=== PATIENT | female | born 1995 | race Caucasian/White ===

== ENCOUNTER 2020-02-15 14:38 | Emergency (ER) | payer OTHER, SELFPAY ==
[2020-02-15 14:51] VITALS: BP 120/84; PULSE 76; RESP 18; TEMP 36.8; O2SAT 98; BMI 20.3
--- NOTE | 2020-02-15 16:17 | PC.NURSE ---
PT states she has had bilateral flank pain, right > left since Sunday. Nothing makes pain better / worse. Was nauseas m/t/w but that has resolved. States does not feel like a UTI. Denies fever / chills/ cough/ shortness of breath and trauma. Skin is pink /warm/dry. Pt is in no distress, texting on phone, moves freely w/o increased pain.
[2020-02-15 16:21] LABS: Add Manual Diff / Slide Review NO; Basophils Absolute Auto 0 /uL (0-100); Basophils Percent Auto 0.4 % (0-2); Eosinophils Absolute Auto 100 /uL (0-450); Eosinophils Percent Auto 0.7 % (2-4); Hematocrit 42.3 % (36-46); Hemoglobin 14.9 g/dL (12.0-16.0); Lymphocytes Absolute Auto 1900 /uL (1100-4500); Lymphocytes Percent Auto 23.2 % (25-40); Mean Corpuscular HGB Conc 35.3 % (30-36); Mean Corpuscular Hemoglobin 31.7 PG (26-34); Monocytes Absolute Auto 500 /uL (0-900); Monocytes Percent Auto 6.6 % (3-14); Neutrophils Absolute Auto 5700 /uL (1500-7000); Neutrophils Percent Auto 69.1 % (50-75); Platelet Count 228 X10^3/uL (150-400); Red Cell Distribution Width 11.7 % (11.6-14.8); White Blood Cell Count 8.2 X10^3/uL (4.5-11.0)
[2020-02-15 16:32] LABS: Alanine Aminotransferase 16 IU/L (<35); Albumin 5.1 g/dL (3.5-5.0); Albumin Globulin Ratio 1.3 (1.0-2.8); Alkaline Phosphatase 59 U/L (38-126); Aspartate Aminotransferase 25 IU/L (14-36); BUN Creatinine Ratio 12.7 (6-22); Bilirubin Total 0.8 mg/dL (0.2-1.3); Blood Urea Nitrogen 7 mg/dL (7-17); Calcium 10.1 mg/dL (8.4-10.2); Carbon Dioxide 22 mmol/L (22-32); Chloride 104 mmol/L (98-107); Estimated Glomerular Filt Rate > 60.0 mL/min (>60); Globulin 3.8 g/dL (1.7-4.1); Glucose 94 mg/dL (70-100); HEMOLYSIS < 15 (0-50); Potassium 3.9 mmol/L (3.4-5.1); Sodium 137 mmol/L (137-145); Total Protein 8.9 g/dL (6.3-8.2)
[2020-02-15] MEDS: KETOROLAC 60 MG/2 ML VIAL 15 MG IV (17:37)
[2020-02-15 17:40] VITALS: BP 108/72; PULSE 60; RESP 14; O2SAT 98
--- NOTE | 2020-02-15 22:31 | ED.BACK ---
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 Patient denies urinary symptoms such as urgency, frequency, dysuria, hematuria. Patient denies fever, vomiting but reports she was nauseated and had hot flashes on Sunday and Sunday (4-5 days ago) which resolved. Patient describes as constant throbbing pain with random stabbing pain. Patient denies elevating or relieving factors. Patient reports LMP was 3 weeks ago which was normal. Patient denies lifting heavy objects, increasing physical activities. Patient denies recent falls, trauma or injuries. Related Data Home Medications Medication Instructions Recorded Confirmed No Known Home Medications 02/15/20 02/15/20 Allergies Allergy/AdvReac Type Severity Reaction Status Date / Time Penicillins Allergy Severe Hives Verified 02/15/20 14:55 Review of Systems <BG Montoya - Last Filed: 02/15/20 23:32> Review of Systems Narrative: General: See HPI HEENT: Denies sinus pain, ear pain, sore throat, difficulty swallowing, dizziness. Respiratory: Denies dyspnea, cough, wheezing, hemoptysis, sputum. Cardiovascular: Denies chest pain, palpitations, orthopnea, edema. Gastrointestinal: Denies (+) resolved nausea, vomiting, abdominal pain, diarrhea, constipation, melena. : See HPI Musculoskeletal: See HPI Skin: Denies rash, skin lesions, or other. Neurologic: Denies weakness, headache, numbness, change in speech, confusion, seizures, incoordination. Psychiatric: No concerning psychosocial issues. 12-point review of systems is negative except for those stated above. Patient History <BG Montoya Last Filed: 02/15/20 23:32> Medical History (Updated 02/15/20 @ 23:24 by BG Montoya) No significant past medical history (Acute) Surgical History (Updated 02/15/20 @ 23:24 by BG Montoya) No pertinent past surgical history (Acute) Social History Smoking Status: Never smoker Smoking Status: Never smoker alcohol intake frequency: a few times a week Substance Use Type: does not use Exam <BG Montoya - Last Filed: 02/15/20 23:32> Narrative Exam Narrative: General appearance: well developed, well nourished, in no acute distress. Head: normocephalic, atraumatic, no scalp lesions, non-tender. ENT: Hearing grossly intact. Airway patent. Neck/Thyroid: neck supple, full range of motion, no visible masses or meningeal signs. No JVD, non-tender without lymphadenopathy. Skin: no suspicious rashes, lesions over visible areas. Warm and dry and appropriate color for ethnicity. Heart: no clubbing, no cyanosis, no edema. S1 and S2 normal. RRR w/o murmurs, clicks, or bruits. Lungs: Breathing even and unlabored. No stridor. No accessory muscles used. Able to speak in full sentences. Chest: normal shape and expansion. Abdomen: non-obese, non-distended. Bowel sounds intact in 4 quadrant and soft to palpate in all quadrant. Neurologic: alert and oriented. Cognitive exam, ACQUISITION ANALYST and PNS grossly intact on informal exam. Psych: good eye contact, normal affect. Initial Vital Signs Initial Vital Signs: Vital Signs Temperature 98.2 F 02/15/20 14:51 Pulse Rate 76 02/15/20 14:51 Respiratory Rate 18 02/15/20 14:51 Blood Pressure 120/84 02/15/20 14:51 Pulse Oximetry 98 02/15/20 14:51 Back/Spine/Pelvis Back: normal to inspection Thoracic/Lumbar Spine: thoraco-lumbar ROM normal, No bend over test abnormal, paraspinal tenderness (in left back), No thoraco-lumbar ROM limited, No thoraco-lumbar spasm, No thoracic spinal tenderness and No lumbar spinal tenderness <Oswald Duggan MD - Last Filed: 02/17/20 08:08> Initial Vital Signs Initial Vital Signs: Vital Signs Temperature 98.2 F 02/15/20 14:51 Pulse Rate 76 02/15/20 14:51 Respiratory Rate 18 02/15/20 14:51 Blood Pressure 120/84 02/15/20 14:51 Pulse Oximetry 98 02/15/20 14:51 Scores <Cali BG Bryant - Last Filed: 02/15/20 23:32> GCS [place] coma scale eye opening: Spontaneous [place] coma scale verbal response: Orientated [place] coma scale motor response: Obey commands Luis Miguel coma scale total score: 15 Course <Cali BG Bryant - Last Filed: 02/15/20 23:32> Orders Ordered: Discontinued Medications Ketorolac Tromethamine (Toradol) 15 mg IV NOW ONE Stop: 02/15/20 16:54 Last Admin: 02/15/20 17:37 Dose: 15 mg Documented by: LIZBET Vital Signs Vital signs: Vital Signs - 8 hr 02/15/20 17:40 Pulse Rate 60 Respiratory Rate 14 Blood Pressure 108/72 Pulse Oximetry 98 <Oswald Duggan MD - Last Filed: 02/17/20 08:08> Orders Ordered: Discontinued Medications Ketorolac Tromethamine (Toradol) 15 mg IV NOW ONE Stop: 02/15/20 16:54 Last Admin: 02/15/20 17:37 Dose: 15 mg Documented by: LIZBET Vital Signs Vital signs: Vital Signs - 8 hr 02/15/20 17:40 Pulse Rate 60 Respiratory Rate 14 Blood Pressure 108/72 Pulse Oximetry 98 MDM - Back Pain/Injury <[facility] - Last Filed: 02/15/20 23:32> Differential Diagnosis Differential diagnosis: Likely pyelonephritis and other (low back pain, UTI, kidney stone) Medical Records Attestation: I reviewed the patient's medical records. Lab Data Attestation: I reviewed the patient's lab results. Result diagrams: 02/15/20 16:14 02/15/20 16:14 Labs: Lab Results 02/15/20 02/15/20 Range/Units 16:14 16:14 WBC 8.2 (4.5-11.0) X10^3/uL RBC 4.70 (4.0-5.2) X10^6/uL Hgb 14.9 (12.0-16.0) g/dL Hct 42.3 (36-46) % MCV 90.0 (80-100) fL MCH 31.7 (26-34) PG MCHC 35.3 (30-36) % RDW 11.7 (11.6-14.8) % Plt Count 228 (150-400) X10^3/uL Neut % (Auto) 69.1 (50-75) % Lymph % (Auto) 23.2 L (25-40) % [place] % (Auto) 6.6 (3-14) % Eos % (Auto) 0.7 L (2-4) % Baso % (Auto) 0.4 (0-2) % Neut # (Auto) 5700 (7513-4271) /uL Lymph # (Auto) 1900 (9326-3434) /uL [place] # (Auto) 500 (0-900) /uL Eos # (Auto) 100 (0-450) /uL Baso # (Auto) 0 (0-100) /uL Sodium 137 (137-145) mmol/L Potassium 3.9 (3.4-5.1) mmol/L Chloride 104 (98-107) mmol/L Carbon Dioxide 22 (22-32) mmol/L BUN 7 (7-17) mg/dL Creatinine 0.55 (0.52-1.04) mg/dL Estimated GFR > 60.0 (>60) mL/min BUN/Creatinine Ratio 12.7 (6-22) Glucose 94 (70-100) mg/dL Calcium 10.1 (8.4-10.2) mg/dL Total Bilirubin 0.8 (0.2-1.3) mg/dL AST 25 (14-36) IU/L ALT 16 (<35) IU/L Alkaline Phosphatase 59 (38-126) U/L Total Protein 8.9 H (6.3-8.2) g/dL Albumin 5.1 H (3.5-5.0) g/dL Globulin 3.8 (1.7-4.1) g/dL Albumin/Globulin Ratio 1.3 (1.0-2.8) Point of Care Testing Test Results Negative Urine Dip Bedside Urine Glucose Negative Bedside Urine Bilirubin - Negative Bedside Urine Ketone - Negative Urine Specific [place] 1.005 Bedside Urine Occult Blood - Negative Bedside Urine pH 7.0 Bedside Urine Protein - Negative Bedside Urine Urobilinogen - Negative Bedside Urine Nitrite - Negative Bedside Urine Leukocytes - Negative Esterase MDM Narrative Medical decision making narrative: This is a 24 year female who presents to ED with bilateral flank pain which is worse on the left side. Urine test was negative for infection or blood. Urine HCG was negative. CBC test shows no leukocytosis. Unremarkable chemistry test including kidney function test. Patient's physical exam is not consistent with kidney stone. Patient is afebrile in ED With within normal vital signs. Given unremarkable findings in lab, urine test, physical exam, imaging test has been deferred at this time. Patient was medicated with Toradol 15mg IV before discharged to home and likely this is musculoskeletal back pain. Patient advised to use [id number] Tylenol or Motrin as needed to follow-up with her primary care physician. Return precautions were discussed with patient and patient verbalized understanding and agreement with treatment plan <Oswald Duggan MD - Last Filed: 02/17/20 08:08> Lab Data Labs: Lab Results 02/15/20 02/15/20 Range/Units 16:14 16:14 WBC 8.2 (4.5-11.0) X10^3/uL RBC 4.70 (4.0-5.2) X10^6/uL Hgb 14.9 (12.0-16.0) g/dL Hct 42.3 (36-46) % MCV 90.0 (80-100) fL MCH 31.7 (26-34) PG MCHC 35.3 (30-36) % RDW 11.7 (11.6-14.8) % Plt Count 228 (150-400) X10^3/uL Neut % (Auto) 69.1 (50-75) % Lymph % (Auto) 23.2 L (25-40) % [place] % (Auto) 6.6 (3-14) % Eos % (Auto) 0.7 L (2-4) % Baso % (Auto) 0.4 (0-2) % Neut # (Auto) 5700 (2036-8181) /uL Lymph # (Auto) 1900 (8512-3629) /uL [place] # (Auto) 500 (0-900) /uL Eos # (Auto) 100 (0-450) /uL Baso # (Auto) 0 (0-100) /uL Sodium 137 (137-145) mmol/L Potassium 3.9 (3.4-5.1) mmol/L Chloride 104 (98-107) mmol/L Carbon Dioxide 22 (22-32) mmol/L BUN 7 (7-17) mg/dL Creatinine 0.55 (0.52-1.04) mg/dL Estimated GFR > 60.0 (>60) mL/min BUN/Creatinine Ratio 12.7 (6-22) Glucose 94 (70-100) mg/dL Calcium 10.1 (8.4-10.2) mg/dL Total Bilirubin 0.8 (0.2-1.3) mg/dL AST 25 (14-36) IU/L ALT 16 (<35) IU/L Alkaline Phosphatase 59 (38-126) U/L Total Protein 8.9 H (6.3-8.2) g/dL Albumin 5.1 H (3.5-5.0) g/dL Globulin 3.8 (1.7-4.1) g/dL Albumin/Globulin Ratio 1.3 (1.0-2.8) Point of Care Testing Test Results Negative Urine Dip Bedside Urine Glucose Negative Bedside Urine Bilirubin - Negative Bedside Urine Ketone - Negative Urine Specific [place] 1.005 Bedside Urine Occult Blood - Negative Bedside Urine pH 7.0 Bedside Urine Protein - Negative Bedside Urine Urobilinogen - Negative Bedside Urine Nitrite - Negative Bedside Urine Leukocytes - Negative Esterase Discharge Plan Departure Patient Disposition: Home Clinical Impression: Low back pain Qualifiers: Chronicity: acute Back pain laterality: right Sciatica presence: without sciatica Qualified Code(s): M54.5 - Low back pain Discharge Date/Time: 02/15/20 17:44 Instructions: DI for Low Back Pain Activity Restrictions/Additional Instructions: You have been diagnosed with [left low back pain. urine test appears to be clean for infection. Urine test is negative. There is no increase in white count indicating infection. Chemistry test is unremarkable and normal kidney function test today.]. What to do: *Take your medications as directed. You can take [id number] Tylenol or Motrin as needed for discomfort. Tylenol 650-1000 mg up to 3 to 4 times a day as needed. Ibuprofen 400-600 mg up to 3 times a day with meals as needed for pain. *Follow up with your primary care provider in 2-3 days, call for an appointment. Let them know you were seen in the ED and that we asked you to be seen in follow up. If your pain persists, you may need imaging test. *Return to ED if you have any new, worsening, or concerning symptoms, such as [fever, rash, worsening pain, chest pain, breathing difficulty, urinary symptoms, blood in her urine or any acute concerns]. Prescriptions: No Action No Known Home Medications RF: 0 Referrals: [facility] [Outside]
== END 2020-02-15 17:44 | disposition home or self-care (01) ==
PROVIDERS: Emergency Medicine; Emergency Provider Nurse Practitioner Family
DX: M54.5 Low back pain (principal); R11.0 Nausea
CPT/HCPCS: 36415; 80053; 81003; 81025; 85025; 96374; 99284; J1885

== ENCOUNTER 2022-03-27 10:28 | Emergency (ER) | payer OTHER, SELFPAY ==
[2022-03-27 10:43] VITALS: BP 124/84; PULSE 78; RESP 18; TEMP 36.3; O2SAT 98; BMI 19.5
--- NOTE | 2022-03-27 10:49 | DI.RAD.S_ITS ---
PROCEDURE: XR CHEST 1V INDICATIONS: chest pain TECHNIQUE: One view of the chest was acquired. COMPARISON: None. FINDINGS: Surgical changes and devices: None. Lungs and pleura: Lungs are clear. No pleural effusions or pneumothorax. Mediastinum: Mediastinal contours appear normal. Heart size is normal. Bones and chest wall: No suspicious bony lesions. Overlying soft tissues appear unremarkable. IMPRESSION: No acute process. Dictated by: Gustavo Padgett M.D. on 03/27/2022 at 11:18 Approved by: Gustavo Padgett M.D. on 03/27/2022 at 11:18
[2022-03-27 11:27] VITALS: BP 125/83; PULSE 72; RESP 18; O2SAT 99
[2022-03-27 11:46] LABS: Add Manual Diff / Slide Review NO; Basophils Absolute Auto 0 /uL (0-100); Basophils Percent Auto 0.6 % (0-2); Eosinophils Absolute Auto 0 /uL (0-450); Eosinophils Percent Auto 0.3 % (2-4); Hematocrit 37.9 % (36-46); Hemoglobin 13.7 g/dL (12.0-16.0); Lymphocytes Absolute Auto 1700 /uL (1100-4500); Lymphocytes Percent Auto 26.4 % (25-40); Mean Corpuscular HGB Conc 36.1 % (30-36); Mean Corpuscular Hemoglobin 31.7 PG (26-34); Mean Corpuscular Volume 87.8 fL (80-100); Monocytes Absolute Auto 600 /uL (0-900); Monocytes Percent Auto 9.8 % (3-14); Neutrophils Absolute Auto 4000 /uL (1500-7000); Neutrophils Percent Auto 62.9 % (50-75); Platelet Count 233 X10^3/uL (150-400); Red Blood Cell Count 4.31 X10^6/uL (4.0-5.2); Red Cell Distribution Width 12.3 % (11.6-14.8); White Blood Cell Count 6.4 X10^3/uL (4.5-11.0)
[2022-03-27 11:58] LABS: Alanine Aminotransferase 19 IU/L (<35); Albumin 4.7 g/dL (3.5-5.0); Albumin Globulin Ratio 1.2 (1.0-2.8); Alkaline Phosphatase 56 U/L (38-126); Aspartate Aminotransferase 29 IU/L (14-36); BUN Creatinine Ratio 23.5 (6-22); Bilirubin Total 1.3 mg/dL (0.2-1.3); Blood Urea Nitrogen 12 mg/dL (7-17); Calcium 9.5 mg/dL (8.4-10.2); Carbon Dioxide 23 mmol/L (22-32); Chloride 100 mmol/L (98-107); Creatine Kinase 53 U/L (30-135); Estimated Glomerular Filt Rate > 60 mL/min (>60); Glucose 88 mg/dL (70-100); HEMOLYSIS < 15 (0-50); Lipase 73 U/L (23-300); Magnesium 1.6 mg/dL (1.6-2.3); Potassium 4.4 mmol/L (3.4-5.1); Sodium 136 mmol/L (137-145); Total Protein 8.7 g/dL (6.3-8.2)
[2022-03-27 12:10] LABS: Troponin I < 0.012 ng/mL (0.01-0.034)
--- NOTE | 2022-03-27 13:31 | ED_ITS ---
HPI - Arrhythmia/Palpitations <Jean-Claude Mathew PA-C - Last Filed: 03/27/22 13:38> General Chief Complaint: Arrhythmia/Palpitations Stated Complaint: heart arythmia, tunnel vision, clammy Time Seen by Provider: 03/27/22 12:14 Source: patient Mode of arrival: Ambulatory History of Present Illness HPI narrative: 26-year-old female presents to the ED with 1 day of chest pain, palpitations. Patient states that she was awakened this morning by an irregular heartbeat, which she describes as every once in a while she felt like her heart was pausing. Patient also endorsed left-sided chest pain when this occurred, end orses that pain once radiated to her right shoulder. Patient also endorses a few moments of tunnel vision and lightheadedness when she was standing, which passed without loss of consciousness. Patient states that her symptoms persisted for about 2 hours, after which her symptoms spontaneously resolved. Patient states that she was diagnosed with some arrhythmia 2 years ago, is unsure what the condition was. Patient denies any family history of early cardiac , cardiac disease. Patient denies fever, chills, shortness of breath, cough, nausea, vomiting, abdominal pain, syncope. Related Data Home Medications Medication Instructions Recorded Confirmed No Known Home Medications 02/15/20 02/15/20 Allergies Allergy/AdvReac Type Severity Reaction Status Date / Time Penicillins Allergy Severe Hives Verified 02/15/20 14:55 Review of Systems <Jean-Claude Mathew PA-C - Last Filed: 03/27/22 13:38> Review of Systems ROS Unobtainable: All systems reviewed & are unremarkable except as noted in HPI and below Constitutional Constitutional: Denies chills, Denies fatigue, Denies fever(s), Denies frequent falls, Denies lethargy and Denies weakness Eyes Eyes: Denies change in vision, Denies eye discharge, Denies irritation and Denies loss of vision ENT Ears, Nose, Mouth, and Throat: Denies change in voice, Denies dizziness, Denies neck pain, Denies sore throat and Denies throat swelling Cardiovascular Cardiovascular: Reports chest pain, Reports irregular heart rhythm, Reports lightheadedness, Denies palpitations, Denies dyspnea, Denies dyspnea on exertion and Denies orthopnea Respiratory Respiratory: Denies cough, Denies dyspnea, Denies dyspnea on exertion and Denies wheezing Gastrointestinal Gastrointestinal: Denies abdominal pain, Denies change in bowel habits, Denies diarrhea, Denies nausea and Denies vomiting Genitourinary Genitourinary: Denies hematuria, Denies flank pain, Denies urinary incontinence and Denies urinary urgency Musculoskeletal Musculoskeletal: Denies back pain, Denies muscle weakness, Denies neck pain, Denies numbness and Denies tingling Integumentary/Breasts Skin/Breast: Denies pruritus, Denies erythema, Denies rash and Denies wounds Neurologic Neurologic: Denies behavioral changes, Denies confusion, Denies dizziness, Denies frequent falls, Denies loss of vision, Denies numbness, Denies tingling and Denies weakness Psychiatric Psychiatric: Denies anxiety, Denies behavioral changes, Denies confusion, Denies depression, Denies homicidal ideation and Denies suicidal ideation Endocrine Endocrine: Denies fatigue, Denies flushing and Denies palpitations Hematologic/Lymphatic Hematologic/Lymphatic: Denies easy bruising Allergic/Immunologic Allergic/Immunologic: Denies urticaria, Denies throat swelling and Denies wheezing Patient History <Jean-Claude Mathew PA-C - Last Filed: 03/27/22 13:38> Medical History No significant past medical history Surgical History No pertinent past surgical history Social History Smoking Status: Never smoker Smoking Status: Never smoker alcohol intake frequency: a few times a week Substance Use Type: does not use Exam <Jean-Claude Mathew PA-C - Last Filed: 03/27/22 13:38> Narrative Exam Narrative: Const General:?cooperative, healthy appearing and comfortable [facility] Head:?normal to inspection Ears:?hearing grossly normal bilaterally Nose:?external nose normal Face and sinus:?normal facial exam and sinuses nontender Mouth:?oral mucosae normal Throat:?posterior oropharynx normal Eyes General:?appearance normal, both eyes and all related structures Neck Neck:?normal visual inspection and no lymphadenopathy noted Resp Effort & Inspection:?normal respiratory effort Auscultation:?clear to auscultation bilaterally Cardio Rate:?regular rate Rhythm:?regular rhythm Neuro General:?patient alert, patient awake and patient oriented x3 Initial Vital Signs Initial Vital Signs: Vital Signs Temperature 97.4 F L 03/27/22 10:43 Pulse Rate 78 03/27/22 10:43 Respiratory Rate 18 03/27/22 10:43 Blood Pressure 124/84 03/27/22 10:43 Pulse Oximetry 98 03/27/22 10:43 Oxygen Delivery Method 03/27/22 10:43 <DO Dustin Ocampo Last Filed: 03/28/22 08:11> Initial Vital Signs Initial Vital Signs: Vital Signs Temperature 97.4 F L 03/27/22 10:43 Pulse Rate 78 03/27/22 10:43 Respiratory Rate 18 03/27/22 10:43 Blood Pressure 124/84 03/27/22 10:43 Pulse Oximetry 98 03/27/22 10:43 Oxygen Delivery Method 03/27/22 10:43 Course <KARLIE Pickard Last Filed: 03/27/22 13:38> Orders Ordered: ED Orders 03/27/22 10:49 XR chest 1V Stat EKG-12 Lead Stat 03/27/22 11:33 Complete Blood Count AUTO DIFF Stat Comprehensive Metabolic Panel Stat Lipase Stat Magnesium Stat Troponin & CK Cardiac Panel Stat Vital Signs Vital signs: Vital Signs - 8 hr 03/27/22 10:43 03/27/22 11:27 Temperature 97.4 F L Pulse Rate 78 72 Respiratory Rate 18 18 Blood Pressure 124/84 125/83 Pulse Oximetry 98 99 Oxygen Delivery Method Room Air Room Air <DO Dustin Ocampo Last Filed: 03/28/22 08:11> Orders Ordered: ED Orders 03/27/22 10:49 XR chest 1V Stat EKG-12 Lead Stat 03/27/22 11:33 Complete Blood Count AUTO DIFF Stat Comprehensive Metabolic Panel Stat Lipase Stat Magnesium Stat Troponin & CK Cardiac Panel Stat Vital Signs Vital signs: Vital Signs - 8 hr 03/27/22 10:43 03/27/22 11:27 Temperature 97.4 F L Pulse Rate 78 72 Respiratory Rate 18 18 Blood Pressure 124/84 125/83 Pulse Oximetry 98 99 Oxygen Delivery Method Room Air Room Air MDM - Arrhythmia/Palpitations <KARLIE Pickard Last Filed: 03/27/22 13:38> Lab Data Attestation: I reviewed the patient's lab results. Result diagrams: 03/27/22 11:33 03/27/22 11:33 Labs: Lab Results 03/27/22 03/27/22 Range/Units 11:33 11:33 WBC 6.4 (4.5-11.0) X10^3/uL RBC 4.31 (4.0-5.2) X10^6/uL Hgb 13.7 (12.0-16.0) g/dL Hct 37.9 (36-46) % MCV 87.8 (80-100) fL MCH 31.7 (26-34) PG MCHC 36.1 H (30-36) % RDW 12.3 (11.6-14.8) % Plt Count 233 (150-400) X10^3/uL Neut % (Auto) 62.9 (50-75) % Lymph % (Auto) 26.4 (25-40) % [place] % (Auto) 9.8 (3-14) % Eos % (Auto) 0.3 L (2-4) % Baso % (Auto) 0.6 (0-2) % Neut # (Auto) 4000 (0726-0105) /uL Lymph # (Auto) 1700 (7018-0460) /uL [place] # (Auto) 600 (0-900) /uL Eos # (Auto) 0 (0-450) /uL Baso # (Auto) 0 (0-100) /uL Sodium 136 L (137-145) mmol/L Potassium 4.4 (3.4-5.1) mmol/L Chloride 100 (98-107) mmol/L Carbon Dioxide 23 (22-32) mmol/L BUN 12 (7-17) mg/dL Creatinine 0.51 L (0.52-1.04) mg/dL Estimated GFR > 60 (>60) mL/min BUN/Creatinine Ratio 23.5 H (6-22) Glucose 88 (70-100) mg/dL Calcium 9.5 (8.4-10.2) mg/dL Magnesium 1.6 (1.6-2.3) mg/dL Total Bilirubin 1.3 (0.2-1.3) mg/dL AST 29 (14-36) IU/L ALT 19 (<35) IU/L Alkaline Phosphatase 56 (38-126) U/L Total Creatine Kinase 53 (30-135) U/L CK-MB (CK-2) TNP CK-MB (CK-2) Rel Index TNP Troponin I < 0.012 (0.01-0.034) ng/mL Total Protein 8.7 H (6.3-8.2) g/dL Albumin 4.7 (3.5-5.0) g/dL Globulin 4.0 (1.7-4.1) g/dL Albumin/Globulin Ratio 1.2 (1.0-2.8) Lipase 73 (23-300) U/L ECG Data Interpretation: Normal sinus rhythm with sinus arrhythmi, no acute ST-T changes, no axis deviation MDM Narrative Medical decision making narrative: 26-year-old female presents to the ED with 1 day of chest pain, palpitations. Concern for ACS versus GERD versus other. Will obtain labs, EKG, chest x-ray, troponin. Will re-evaluate. Workup was largely unremarkable. Chest x-ray, EKG, labs, troponin all within normal limits. Patient was also symptom free and stable during her ED stay. No arrhythmias noted on the monitor or EKG. Patient agrees to follow-up with a hoop machine operator as soon as possible. ED return precautions were discussed with patient. Patient verbalized understanding. <Mignon De La Rosa, - Last Filed: 03/28/22 08:11> Lab Data Labs: Lab Results 03/27/22 03/27/22 Range/Units 11:33 11:33 WBC 6.4 (4.5-11.0) X10^3/uL RBC 4.31 (4.0-5.2) X10^6/uL Hgb 13.7 (12.0-16.0) g/dL Hct 37.9 (36-46) % MCV 87.8 (80-100) fL MCH 31.7 (26-34) PG MCHC 36.1 H (30-36) % RDW 12.3 (11.6-14.8) % Plt Count 233 (150-400) X10^3/uL Neut % (Auto) 62.9 (50-75) % Lymph % (Auto) 26.4 (25-40) % [place] % (Auto) 9.8 (3-14) % Eos % (Auto) 0.3 L (2-4) % Baso % (Auto) 0.6 (0-2) % Neut # (Auto) 4000 (0977-9675) /uL Lymph # (Auto) 1700 (5402-5386) /uL [place] # (Auto) 600 (0-900) /uL Eos # (Auto) 0 (0-450) /uL Baso # (Auto) 0 (0-100) /uL Sodium 136 L (137-145) mmol/L Potassium 4.4 (3.4-5.1) mmol/L Chloride 100 (98-107) mmol/L Carbon Dioxide 23 (22-32) mmol/L BUN 12 (7-17) mg/dL Creatinine 0.51 L (0.52-1.04) mg/dL Estimated GFR > 60 (>60) mL/min BUN/Creatinine Ratio 23.5 H (6-22) Glucose 88 (70-100) mg/dL Calcium 9.5 (8.4-10.2) mg/dL Magnesium 1.6 (1.6-2.3) mg/dL Total Bilirubin 1.3 (0.2-1.3) mg/dL AST 29 (14-36) IU/L ALT 19 (<35) IU/L Alkaline Phosphatase 56 (38-126) U/L Total Creatine Kinase 53 (30-135) U/L CK-MB (CK-2) TNP CK-MB (CK-2) Rel Index TNP Troponin I < 0.012 (0.01-0.034) ng/mL Total Protein 8.7 H (6.3-8.2) g/dL Albumin 4.7 (3.5-5.0) g/dL Globulin 4.0 (1.7-4.1) g/dL Albumin/Globulin Ratio 1.2 (1.0-2.8) Lipase 73 (23-300) U/L Discharge Plan Departure Patient Disposition: Home Clinical Impression: Palpitations Instructions: DI for Arrhythmias Activity Restrictions/Additional Instructions: You were evaluated in the ED today for chest pain and palpitations. Your EKG, chest x-ray, labs were normal and very reassuring. Your heart rate was regular and normal during her entire ED stay as observed on the monitor and on the EKG. You were symptom free during your ED stay. Please follow-up with a hoop machine operator as soon as possible for further evaluation and treatment of the arrhythmia. Return to the ED if your symptoms worsen, you experience chest pain, shortness of breath. Prescriptions: No Action No Known Home Medications Referrals: Provider,Kristen NGUYỄN [Primary Care Provider] - Visit Report Forms: Patient Portal/API <Mignon De La Rosa DO - Last Filed: 03/28/22 08:11> Cosign ED Attending Lauryn Attestation: I was immediately available in the department for consultation. Documentation has been reviewed.
[2022-03-27 13:32] VITALS: BP 114/73; PULSE 72; RESP 16; O2SAT 99
== END 2022-03-27 13:47 | disposition home or self-care (01) ==
PROVIDERS: Emergency Medicine; Emergency Provider Student in an Organized Health Care Education/Training Program
DX: R00.2 Palpitations (principal); R07.9 Chest pain, unspecified
CPT/HCPCS: 36415; 71045; 80053; 82550; 83690; 83735; 84484; 85025; 93005; 99284